=== PATIENT | male | born 1975 | race African-American/Black ===

== ENCOUNTER 2016-09-16 12:30 | Emergency (ER) | payer MEDICARE, MEDICAID ==
[~2016-09-16] VITALS: Ht 177.8 cm; Wt 82.0 kg
[2016-09-16] MEDS ORDERED: LIDOCAINE HCL 1% 20ML VIAL (Pyxis) INJ MC ONE (13:30)
[2016-09-16] MEDS ORDERED: BACITRACIN ZINC OINT UDPKT TOP ONE (13:30)
[2016-09-16] MEDS ORDERED: IBUPROFEN 600MG TABLET PO ONE (13:30)
[2016-09-16 14:48] VITALS: BP 118/68
== END 2016-09-16 14:50 | disposition home or self-care (01) ==
LOC: ER 12:34
DX: L02.414 Cutaneous abscess of left upper limb (principal); L02.415 Cutaneous abscess of right lower limb; F14.10 Cocaine abuse, uncomplicated
CPT/HCPCS: 10060; 99283; J3490

== ENCOUNTER 2017-01-25 08:29 | Emergency (ER) | payer MEDICARE, OTHER ==
[~2017-01-25] VITALS: Ht 182.9 cm; Wt 82.0 kg
[2017-01-25] MEDS ORDERED: TETANUS, DIPHTHERIA, PERTUSSIS VAC/PF 0.5ML (>7YR OLD) IM ONE (10:45)
[2017-01-25] MEDS ORDERED: AMOXICILLIN/POTASSIUM CLAVULANATE 500/125MG TAB PO ONE (10:45)
[2017-01-25 12:16] VITALS: BP 119/74
== END 2017-01-25 12:21 | disposition home or self-care (01) ==
LOC: ER 08:43
DX: S41.052A Open bite of left shoulder, initial encounter (principal); L03.90 Cellulitis, unspecified; W54.0XXA Bitten by dog, initial encounter; Y93.89 Activity, other specified; Y92.89 Other specified places as the place of occurrence of the external cause; Y99.8 Other external cause status
CPT/HCPCS: 90471; 90715; 99283

== ENCOUNTER 2019-12-26 07:13 | Emergency (ER) | payer MEDICARE, MEDICAID, OTHER ==
[~2019-12-26] VITALS: Ht 182.9 cm; Wt 75.0 kg
[2019-12-26] MEDS ORDERED: KETOROLAC 30MG/ML VIAL IV STA (07:21)
[2019-12-26] MEDS ORDERED: SODIUM CHLORIDE 0.9% 1,000 ML IV ONE (07:21)
[2019-12-26] MEDS ORDERED: ONDANSETRON HCL 4MG/2ML INJ IV STA ×2 (07:21→09:09)
[2019-12-26 07:52] LABS: BASOPHILS % 0.4 % (0.0-2.0); EOSINOPHILS % 0.8 % (0.0-5.0); HEMOGLOBIN. 13.1 g/dL (14.0-18.0); LYMPHOCYTES % 8.8 % (20.0-50.0); MEAN CORPUSCULAR HEMOGLOBIN 31.7 pg (28.0-32.0); MEAN CORPUSCULAR VOLUME 94.4 fL (80.0-94.0); MONOCYTES % 9.8 % (2.0-8.0); NEUTROPHILS % 80.2 % (40.0-76.0); PLATELET 265 x1000/uL (130-400); RED BLOOD CELL COUNT 4.13 mill/uL (4.7-6.1); RED CELL DISTRIBUTION WIDTH 13.5 % (11.6-14.6)
[2019-12-26 08:00] LABS: CHLORIDE 104 mEq/L (98-107)
[2019-12-26 08:04] LABS: ETHANOL BLOOD < 10 mg/dL
[2019-12-26 08:37] LABS: CLARITY URINE CLOUDY (CLEAR); COLOR URINE YELLOW (YELLOW); KETONES URINE NEGATIVE (NEGATIVE); LEUKOCYTE ESTERASE URINE 2+ (NEGATIVE); NITRITE URINE NEGATIVE (NEGATIVE); OCCULT BLOOD URINE 2+ (NEGATIVE); PH URINE >=9.0 (4.5-8.0); PROTEIN URINE 1+ (NEGATIVE); SPECIFIC GRAVITY URINE 1.026 (1.005-1.030)
[2019-12-26 08:52] LABS: *BARBITURATES SCREEN URINE NEGATIVE (NEGATIVE)
[2019-12-26 08:53] LABS: *AMPHETAMINES SCREEN URINE NEGATIVE (NEGATIVE); *BENZODIAZEPINES SCREEN URINE NEGATIVE (NEGATIVE); *COCAINE SCREEN URINE NEGATIVE (NEGATIVE); METHADONE URINE SCREEN NEGATIVE (NEGATIVE); OPIATES URINE SCREEN NEGATIVE (NEGATIVE); PHENCYCLIDINE URINE SCREEN NEGATIVE (NEGATIVE)
[2019-12-26 08:54] LABS: CANNABINOID URINE SCREEN PRESUMTIVE POSITIVE (NEGATIVE)
[2019-12-26] MEDS ORDERED: MORPHINE SULFATE 4 MG/ML CPJ (NOT FOR IM USE) IV STA (09:09)
[2019-12-26] MEDS ORDERED: CEFTRIAXONE 1 G PREMIX 50 ML IV ONE (09:15)
[2019-12-26] MEDS ORDERED: TAMSULOSIN HCL 0.4MG SR CAPSULE PO ONE (09:15)
[2019-12-26 10:44] VITALS: BP 120/78
== END 2019-12-26 10:45 | disposition home or self-care (01) ==
LOC: ER 07:32
DX: N13.2 Hydronephrosis with renal and ureteral calculous obstruction (principal); N30.00 Acute cystitis without hematuria
CPT/HCPCS: 36415; 74176; 80053; 80305; 80320; 81003; 83690; 85025; 87086; 93005; 96374; 96375; 96376; 99285; J0696; J1885; J2270; J2405; J7030; G0480

== ENCOUNTER 2019-12-28 13:10 | Emergency (ER) | payer MEDICARE, OTHER ==
[~2019-12-28] VITALS: Ht 188 cm; Wt 65.9 kg
[2019-12-28] MEDS ORDERED: FAMOTIDINE 20MG/2ML VIAL IV STA (14:44)
[2019-12-28] MEDS ORDERED: ONDANSETRON 4MG ODT PO STA (14:44)
[2019-12-28] MEDS ORDERED: KETOROLAC 30MG/ML VIAL IV STA (14:44)
[2019-12-28] MEDS ORDERED: SODIUM CHLORIDE 0.9% 1,000 ML IV ONE (14:44)
[2019-12-28 14:55] LABS: CLARITY URINE CLEAR (CLEAR); COLOR URINE YELLOW (YELLOW); KETONES URINE TRACE (NEGATIVE); LEUKOCYTE ESTERASE URINE 1+ (NEGATIVE); NITRITE URINE NEGATIVE (NEGATIVE); OCCULT BLOOD URINE 1+ (NEGATIVE); PH URINE 5.5 (4.5-8.0); PROTEIN URINE NEGATIVE (NEGATIVE); UROBILINOGEN URINE 0.2 E.U./dL (0.2-1.0)
[2019-12-28 15:26] LABS: BASOPHILS % 0.4 % (0.0-2.0); EOSINOPHILS % 1.7 % (0.0-5.0); HEMATOCRIT. 37.9 % (42.0-52.0); HEMOGLOBIN. 12.7 g/dL (14.0-18.0); LYMPHOCYTES % 13.5 % (20.0-50.0); MEAN CORPUSCULAR HEMOGLOBIN 31.8 pg (28.0-32.0); MEAN CORPUSCULAR VOLUME 95.2 fL (80.0-94.0); MEAN PLATELET VOLUME 8.5 fl (7.4-10.4); MONOCYTES % 9.4 % (2.0-8.0); PLATELET 248 x1000/uL (130-400); RED BLOOD CELL COUNT 3.98 mill/uL (4.7-6.1); RED CELL DISTRIBUTION WIDTH 13.5 % (11.6-14.6)
[2019-12-28 15:31] LABS: *AMPHETAMINES SCREEN URINE NEGATIVE (NEGATIVE); *BARBITURATES SCREEN URINE NEGATIVE (NEGATIVE); *BENZODIAZEPINES SCREEN URINE NEGATIVE (NEGATIVE); *COCAINE SCREEN URINE PRESUMTIVE POSITIVE (NEGATIVE); METHADONE URINE SCREEN NEGATIVE (NEGATIVE); OPIATES URINE SCREEN PRESUMTIVE POSITIVE (NEGATIVE)
[2019-12-28 15:31] LABS: CHLORIDE 100 mEq/L (98-107)
[2019-12-28 15:32] LABS: CANNABINOID URINE SCREEN PRESUMTIVE POSITIVE (NEGATIVE); PHENCYCLIDINE URINE SCREEN NEGATIVE (NEGATIVE)
[2019-12-28 15:34] LABS: PROTHROMBIN TIME 10.5 sec (9.6-11.0)
[2019-12-28 15:35] LABS: ETHANOL BLOOD < 10 mg/dL
[2019-12-28 19:08] VITALS: BP 115/73
== END 2019-12-28 19:39 | disposition home or self-care (01) ==
LOC: ER 13:10
DX: N13.2 Hydronephrosis with renal and ureteral calculous obstruction (principal); F14.10 Cocaine abuse, uncomplicated; F12.10 Cannabis abuse, uncomplicated; F11.10 Opioid abuse, uncomplicated
CPT/HCPCS: 36415; 71045; 76705; 80053; 80305; 80320; 81003; 83690; 83880; 84484; 85025; 85610; 96374; 96375; 99285; J1885; J3490; J7030; Q0162; G0480

== ENCOUNTER 2020-02-28 07:44 | Emergency (ER) | payer MEDICARE, OTHER ==
[~2020-02-28] VITALS: Ht 185.4 cm; Wt 72.0 kg
[2020-02-28] MEDS ORDERED: ACETAMINOPHEN 500MG TABLET PO ONE (09:00)
[2020-02-28] MEDS ORDERED: IBUPROFEN 800MG TABLET PO ONE (09:00)
[2020-02-28 10:14] VITALS: BP 118/77
== END 2020-02-28 10:15 | disposition home or self-care (01) ==
LOC: ER 07:44
DX: S83.92XA Sprain of unspecified site of left knee, initial encounter (principal); S53.401A Unspecified sprain of right elbow, initial encounter; F12.10 Cannabis abuse, uncomplicated; W01.0XXA Fall on same level from slipping, tripping and stumbling without subsequent striking against object, initial encounter; Y93.89 Activity, other specified; Y92.89 Other specified places as the place of occurrence of the external cause; Y99.8 Other external cause status
CPT/HCPCS: 73080; 73560; 99284

== ENCOUNTER 2020-08-23 13:13 | Emergency (ER) | payer MEDICARE, MEDICAID, OTHER ==
[~2020-08-23] VITALS: Ht 188 cm; Wt 73.0 kg
[2020-08-23] MEDS ORDERED: HYDROCODONE/ACETAMINOPHEN 5/325MG TABLET PO ONE (14:00)
[2020-08-23] MEDS ORDERED: TRAM50TA3 MT (16:00)
[2020-08-23] MEDS ORDERED: TOPUD MT (16:00)
[2020-08-23 17:22] VITALS: BP 128/79
== END 2020-08-23 17:24 | disposition home or self-care (01) ==
LOC: ER 14:06
DX: M25.531 Pain in right wrist (principal); M79.601 Pain in right arm; M25.572 Pain in left ankle and joints of left foot; M25.562 Pain in left knee; F12.10 Cannabis abuse, uncomplicated; F17.200 Nicotine dependence, unspecified, uncomplicated; Z79.899 Other long term (current) drug therapy
CPT/HCPCS: 29125; 73110; 73130; 99284